=== PATIENT | male | born 1930 | race Caucasian/White ===

== ENCOUNTER 2019-03-19 17:13 | Inpatient (IN) | payer MEDICARE, MEDICAID ==
[~2019-03-19] VITALS: Ht 172.7 cm; Wt 78.2 kg
[2019-03-19] MEDS ORDERED: AMLODIPINE BESY10 MG PO (17:38)
[2019-03-19] MEDS ORDERED: ASPIRIN81 MG PO (17:39)
[2019-03-19] MEDS ORDERED: LISINOPRIL20 MG PO (17:39)
[2019-03-19] MEDS ORDERED: TAMSULOSIN HCL0.4 MG PO (17:40)
[2019-03-19] MEDS ORDERED: SERTRALINE50 MG PO (17:40)
[2019-03-19] MEDS ORDERED: VITAMIN B1100 M1 PO (17:40)
[2019-03-19] MEDS ORDERED: VITAMIN D31000 UNI1 PO (17:42)
[2019-03-19] MEDS ORDERED: CELEBREX200 MG PO (17:53)
[2019-03-19 18:25] LABS: HEMATOCRIT 35.3 % (39.0-50.0); HEMOGLOBIN 11.4 g/dl (14.0-18.0); IMMATURE GRANULOCYTES 0.4 % (0.0-5.0); MEAN CELL VOLUME 91.2 fL CALC (80.0-100.0); MEAN CORPUSCULAR HGB 29.5 pG CALC (26.0-32.0); MEAN CORPUSCULAR HGB CONC 32.3 g/L CALC (32.0-36.0); NEUT# 3.4 thou/uL (1.82-7.42); RED BLOOD COUNT 3.87 mill/uL (4.70-6.10); RED CELL DISTRI WIDTH 14.2 % (11.5-15.5)
[2019-03-19 18:53] LABS: ALBUMIN 3.6 g/dL (3.2-5.0); ALKALINE PHOSPHATASE 57 u/l (38-126); ANION GAP 14 (6-22 (CALC)); BILIRUBIN, TOTAL 0.5 mg/dL (0.0-1.4); BUN 25 mg/dL (8-23); BUN/CREATININE RATIO 29 (12-20 (CALC)); CARBON DIOXIDE 23 mmol/l (22-30); CHLORIDE 106 mmol/l (95-108); CREATININE 0.9 mg/dL (0.7-1.3); GFR > 60 ML/MIN (>=60 (CALC)); GFR FOR AFR.AMER. > 60 ML/MIN (>=60 (CALC)); POTASSIUM 4.3 mmol/l (3.5-5.1); SGOT/AST 18 u/l (19-48); SODIUM 139 mmol/l (137-146)
[2019-03-19 20:19] LABS: URINE BILIRUBIN - DIPSTICK NEGATIVE (NEGATIVE); URINE BLOOD DIPSTICK NEGATIVE (NEGATIVE); URINE COLOR YELLOW; URINE GLUCOSE - DIPSTICK NEGATIVE (NEGATIVE); URINE KETONE NEGATIVE (NEGATIVE); URINE LEUK ESTERASE NEGATIVE (NEGATIVE); URINE NITRITE - DIPSTICK NEGATIVE (Negative); URINE PROTEIN - DIPSTICK NEGATIVE (NEG-TRACE); URINE SPECIFIC GRAVITY <=1.005; URINE UROBILINOGEN - DIPSTICK 0.2 E.U./dL (0.2)
[2019-03-19] MEDS ORDERED: DULCOLAX SS100 MG PO (20:31)
[2019-03-19] MEDS ORDERED: PEPCID20 MG PO (20:32)
[2019-03-19] MEDS ORDERED: SEROQUEL25 MG PO (20:32)
[2019-03-19] MEDS ORDERED: HYDRALAZINE10 MG PO (20:34)
[2019-03-19] MEDS ORDERED: ATIVAN2 MG/M1 IM (20:35)
[2019-03-19] MEDS ORDERED: ATIVAN1 MG PO (20:36)
[2019-03-19 21:00] VITALS: BP 157/89
[2019-03-20] VITALS (9 sets, daily range): BP systolic 126–165; BP diastolic 63–93
[2019-03-21] VITALS (11 sets, daily range): BP systolic 117–167; BP diastolic 64–94
[2019-03-21 05:13] LABS: HEMATOCRIT 36.7 % (39.0-50.0); HEMOGLOBIN 11.9 g/dl (14.0-18.0); MEAN CELL VOLUME 90.6 fL CALC (80.0-100.0); MEAN CORPUSCULAR HGB 29.4 pG CALC (26.0-32.0); MEAN CORPUSCULAR HGB CONC 32.4 g/L CALC (32.0-36.0); RED BLOOD COUNT 4.05 mill/uL (4.70-6.10); RED CELL DISTRI WIDTH 14.2 % (11.5-15.5)
[2019-03-21 05:30] LABS: ANION GAP 13 (6-22 (CALC)); BUN 14 mg/dL (8-23); BUN/CREATININE RATIO 19 (12-20 (CALC)); CARBON DIOXIDE 24 mmol/l (22-30); CHLORIDE 110 mmol/l (95-108); CREATININE 0.8 mg/dL (0.7-1.3); GFR > 60 ML/MIN (>=60 (CALC)); GFR FOR AFR.AMER. > 60 ML/MIN (>=60 (CALC)); SODIUM 143 mmol/l (137-146)
[2019-03-21] MEDS ORDERED: DOXYCYCL HYC100 MG PO (18:50)
[2019-03-22] VITALS (12 sets, daily range): BP systolic 114–172; BP diastolic 54–82
[2019-03-22] MEDS ORDERED: AMOX/K CLAV875 M1 PO (08:33)
[2019-03-23] VITALS (8 sets, daily range): BP systolic 104–155; BP diastolic 57–78
[2019-03-24 04:00] VITALS: BP 132/73
[2019-03-24 11:59] VITALS: BP 136/68
[2019-03-24 20:00] VITALS: BP 140/77
[2019-03-25] VITALS: BP 142/68
[2019-03-25 02:00] VITALS: BP 145/82
[2019-03-25 05:15] VITALS: BP 115/62
[2019-03-25 09:21] VITALS: BP 128/67
[2019-03-25 12:00] VITALS: BP 139/79
[2019-03-25 16:10] VITALS: BP 112/81
[2019-03-26] VITALS: BP 138/80
[2019-03-26 04:29] VITALS: BP 145/73
[2019-03-26 05:47] LABS: HEMATOCRIT 37.9 % (39.0-50.0); HEMOGLOBIN 12.5 g/dl (14.0-18.0); MEAN CELL VOLUME 90.2 fL CALC (80.0-100.0); MEAN CORPUSCULAR HGB 29.8 pG CALC (26.0-32.0); RED BLOOD COUNT 4.2 mill/uL (4.70-6.10); RED CELL DISTRI WIDTH 14.4 % (11.5-15.5)
[2019-03-26 05:53] LABS: ANION GAP 14 (6-22 (CALC)); BUN 17 mg/dL (8-23); BUN/CREATININE RATIO 20 (12-20 (CALC)); CARBON DIOXIDE 22 mmol/l (22-30); CHLORIDE 108 mmol/l (95-108); CREATININE 0.8 mg/dL (0.7-1.3); GFR > 60 ML/MIN (>=60 (CALC)); GFR FOR AFR.AMER. > 60 ML/MIN (>=60 (CALC)); POTASSIUM 4.4 mmol/l (3.5-5.1); SODIUM 140 mmol/l (137-146)
[2019-03-26 11:22] VITALS: BP 147/76
== END 2019-03-26 12:54 | DRG 884 ==
LOC: ED 17:13 → ED-I 17:23 → ED 17:23 → ED-I 19:49 → ED 20:04 → MS2 20:05 → ICU 03-20 12:34 → MS2 03-20 12:34 → ICU 03-20 14:37
PROVIDERS: Emergency Medicine; ADMIT Internal Medicine; ATTEND Internal Medicine
DX: F03.91 Unspecified dementia, unspecified severity, with behavioral disturbance (principal); J18.9 Pneumonia, unspecified organism; J02.0 Streptococcal pharyngitis; I10 Essential (primary) hypertension; F41.9 Anxiety disorder, unspecified; F32.9 Major depressive disorder, single episode, unspecified; N40.0 Benign prostatic hyperplasia without lower urinary tract symptoms; Z78.1 Physical restraint status
CPT/HCPCS: G0378; J1650; J2060; S0166